=== PATIENT | male | born 1990 | race Caucasian/White ===

== ENCOUNTER 2018-04-18 19:17 | Emergency (ER) | payer OTHER ==
[~2018-04-18] VITALS: Ht 172.7 cm; Wt 88.9 kg
[2018-04-18 19:25] VITALS: BP 142/73
--- NOTE | 2018-04-18 19:45 | NUR ---
PT C/O GENERALIZED BODY PAIN AND SORE THROAT. PT HAS NO PMH, IS IN NO ACUTE DISTRESS AT THIS TIME. RR EVEN AND UNLABORED, BL BS CLEAR.
[2018-04-18] MEDS ORDERED: ACETAMINOPHEN 325 MG TAB PO ONE (19:55)
[2018-04-18] MEDS ORDERED: ACETAMINOPHEN 325 MG TAB ONE (20:01)
[2018-04-18 20:17] VITALS: BP 156/55
--- NOTE | 2018-04-18 20:17 | NUR ---
Patient discharged with v/s stable. Written and verbal after care instructions given and explained. Patient verbalized understanding. Ambulatory with steady gait. All questions addressed prior to discharge. Advised to follow up with PMD.
== END 2018-04-18 20:17 | disposition home or self-care (01) ==
LOC: MED 19:17
DX: B34.9 Viral infection, unspecified (principal)
CPT/HCPCS: 99282